=== PATIENT | female | born 1955 | race Caucasian/White ===

== ENCOUNTER 2020-06-05 10:51 | Emergency (ER) | payer MEDICARE ==
[~2020-06-05] VITALS: Ht 172.7 cm; Wt 72.3 kg
[2020-06-05 11:00] VITALS: BP 138/74
[2020-06-05] MEDS ORDERED: CEFTRIAXONE 250 MG IM ONE (12:30)
[2020-06-05] MEDS ORDERED: AZITHROMYCIN 500 MG TABLET PO ONE (12:30)
[2020-06-05 12:52] LABS: CLUE CELLS PRESENT (NONE SEEN); WET PREP WBCS FEW (FEW)
[2020-06-05] MEDS ORDERED: CEFTRIAXONE 250 MG ONE (13:02)
[2020-06-05] MEDS ORDERED: AZITHROMYCIN 250 MG TABLET ONE (13:03)
== END 2020-06-05 13:59 | disposition home or self-care (01) ==
LOC: ED 13:50
DX: A56.09 Other chlamydial infection of lower genitourinary tract (principal); A59.09 Other urogenital trichomoniasis; N76.0 Acute vaginitis; A58 Granuloma inguinale; R10.2 Pelvic and perineal pain; N93.9 Abnormal uterine and vaginal bleeding, unspecified
CPT/HCPCS: 87210; 87491; 87591; 87808; 96372; 99284; J0696

== ENCOUNTER 2020-06-22 18:38 | Emergency (ER) | payer MEDICAID, MEDICARE ==
[~2020-06-22] VITALS: Ht 157.5 cm; Wt 73.0 kg
--- NOTE | 2020-06-22 19:04 | NUR ---
PT REFUSED EKG IN TRIAGE. PT REFUSED SAYS IT WAS MAKING HER SICK TO SIT UP. EXPLAINED TO PT THAT EKG WAS IMPORTANT TO LOOK AT HER HEART AND SHE STILL REFUSED.
[2020-06-22] MEDS ORDERED: ACETAMINOPHEN 325 MG TABLET ONE (20:33)
--- NOTE | 2020-06-22 20:58 | NUR ---
PT PROVIDED WALKER AND SHOWN HOW TO PROPERLY USE WALKER. PT REQUESTED CAB VOUCHER, VOUCHER PROVIDED TO PT AT DISCHARGE.
[2020-06-22] MEDS ORDERED: ACETAMINOPHEN 325 MG TABLET PO ONE (21:00)
[2020-06-22 21:15] VITALS: BP 132/84
== END 2020-06-22 21:17 | disposition home or self-care (01) ==
LOC: ED 19:45
DX: M25.551 Pain in right hip (principal); M25.511 Pain in right shoulder; F17.210 Nicotine dependence, cigarettes, uncomplicated; Z96.643 Presence of artificial hip joint, bilateral; W18.30XA Fall on same level, unspecified, initial encounter; Y93.89 Activity, other specified; Y92.410 Unspecified street and highway as the place of occurrence of the external cause; Y99.8 Other external cause status
CPT/HCPCS: 99284

== ENCOUNTER 2020-07-31 09:22 | Emergency (ER) | payer MEDICARE, MEDICAID ==
[~2020-07-31] VITALS: Ht 157.5 cm; Wt 55.0 kg
[2020-07-31 09:27] VITALS: BP 135/71
--- NOTE | 2020-07-31 10:00 | NUR ---
PT IN BR FOR APPROX 20 MINUTES. CHECKED ON SEVERAL TIMES. PT UNABLE TO GIVE UA. H2O PROVIDED.
[2020-07-31 10:43] LABS: MICROSCOPIC INDICATED
[2020-07-31] MEDS ORDERED: ACETAMINOPHEN 325 MG TABLET PO ONE (11:00)
[2020-07-31] MEDS ORDERED: ACETAMINOPHEN 325 MG TABLET ONE (11:03)
== END 2020-07-31 11:20 | disposition home or self-care (01) ==
LOC: ED 10:28
DX: N30.01 Acute cystitis with hematuria (principal); R30.0 Dysuria
CPT/HCPCS: 81001; 87077; 87086; 87186; 99283

== ENCOUNTER 2020-08-27 21:04 | Emergency (ER) | payer MEDICARE, MEDICAID ==
[~2020-08-27] VITALS: Ht 157.5 cm; Wt 60.0 kg
--- NOTE | 2020-08-27 21:23 | NUR ---
DR VELOZ AT BS. PT SITTING ON SIDE OF BED. C/O RT ARM "PARALYZED" - LIMITED ROM R/T PAIN. STATES SHE HAD SHOULDER SURGERY ABOUT 15 YEARS AGO. PT STATES SHE MOVED TO [place] 6 WEEKS AGO. ALSO C/O LT LEG SWOLLEN TODAY. REPORT PAIN X 1 WEEK. C/O PAIN TO ENTIRE LT LEG. SCARS TO LT HIP: HIP REPLACED. DENNEETU CP, SOB. Addendum: 08/27/20 at 2132 by NADIA PT STATES SHE IS UNABLE TO LIFT HER LEGS ONTO GURNEY; ASSISTANCE PROVIDED.
[2020-08-27] MEDS ORDERED: KETOROLAC 30 MG/1 ML IM ONE (21:30)
--- NOTE | 2020-08-27 21:30 | NUR ---
PT FOUND STANDING AT BS, USING BOTH EXTREMETIES TO WIPE HER FEET AT TO [facility]. PT CURRENTLY STAYING AT LOCAL [facility].
--- NOTE | 2020-08-27 21:40 | NUR ---
PT SPEAKING RAPIDLY. 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 STATES SHE HAS HTN BUT DOESN'T TAKE HTN MED. STATES SHE'S BIPOLAR, BUT HASN'T NEEDED HER MEDICATION IN YEARS.
[2020-08-27] MEDS ORDERED: KETOROLAC 30 MG/1 ML ONE (21:43)
--- NOTE | 2020-08-27 21:46 | NUR ---
OBSERVED PT USING BOTH ARMS, ABLE TO BEND RT ARM AT ELBOW TO PUT FOOD IN HER MOUTH.
--- NOTE | 2020-08-27 21:49 | NUR ---
TORADOL GIVEN PER EMAR
--- NOTE | 2020-08-27 21:55 | NUR ---
PT FOUND WALKING IN [place], USING HER WALKER, GOING TO USE THE PHONE. RETURNED TO ED ROOM W/OUT INCIDENT. ABLE TO LIFT/MOVE WALKER W/OUT ANY APPARENT DIFFICULTY.
--- NOTE | 2020-08-27 22:00 | NUR ---
BEDSIDE REPORT RECEIVED FROM ZAHRA CAPPS
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
--- NOTE | 2020-08-27 23:08 | NUR ---
US AT BEDSIDE
--- NOTE | 2020-08-27 23:30 | NUR ---
US LEFT BEDSIDE. PT IN NAD, VSS. PT REPORTS MINIMAL RELIEF FROM MERCHANDISE ADJUSTMENT CLERK. ERP NOTIFIED. NO NEEDS AT THIS TIME. CALL LIGHT AND PERSONAL BELONGINGS WITHIN REACH.
[2020-08-27 23:58] VITALS: BP 156/72
--- NOTE | 2020-08-27 23:58 | NUR ---
Patient given discharge instructions and they have confirmed that they understand the instructions. Patient ambulatory to d/c desk with use of personal walker.
== END 2020-08-28 | disposition home or self-care (01) ==
LOC: ED 21:39
DX: M25.511 Pain in right shoulder (principal); M79.605 Pain in left leg; Z96.643 Presence of artificial hip joint, bilateral
CPT/HCPCS: 93971; 96372; 99284; J1885

== ENCOUNTER 2020-08-30 17:48 | Emergency (ER) | payer MEDICARE, MEDICAID ==
[~2020-08-30] VITALS: Ht 160 cm; Wt 65.0 kg
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
--- NOTE | 2020-08-30 18:14 | NUR ---
Pt to XR
--- NOTE | 2020-08-30 18:28 | NUR ---
Pt back from imaging.
[2020-08-30 19:46] VITALS: BP 126/82
--- NOTE | 2020-08-30 19:55 | NUR ---
Provided pt taxi cab voucher.
== END 2020-08-30 19:57 | disposition home or self-care (01) ==
LOC: ED 18:26
DX: S40.011A Contusion of right shoulder, initial encounter (principal); S50.02XA Contusion of left elbow, initial encounter; S80.02XA Contusion of left knee, initial encounter; W07.XXXA Fall from chair, initial encounter; Y93.89 Activity, other specified; Y92.89 Other specified places as the place of occurrence of the external cause; Y99.8 Other external cause status
CPT/HCPCS: 99284

== ENCOUNTER 2020-10-03 01:31 | Emergency (ER) | payer MEDICARE, MEDICAID ==
[~2020-10-03] VITALS: Ht 157.5 cm; Wt 67.5 kg
[2020-10-03 01:37] VITALS: BP 157/98
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
--- NOTE | 2020-10-03 02:13 | NUR ---
computer lab assistant to bedside to draw blood.
--- NOTE | 2020-10-03 02:13 | NUR ---
landfill gas technician to bedside for portable cxry
[2020-10-03 02:19] LABS: BASOPHILS % (AUTO) 1 % (0-1); EOSINOPHILS % (AUTO) 3 % (1-7); LYMPHOCYTES % (AUTO) 23 % (22-44); MD NO; MEAN CORPUSCULAR HGB CONC 33.6 g/dL (32.4-35.8); MEAN PLATELET VOLUME 7.1 fL (7.4-10.4); MONOCYTES % (AUTO) 7 % (2-9); NEUTROPHILS % (AUTO) 67 % (42-75); PLATELET COUNT 338 x10^3/uL (130-400); RED BLOOD COUNT 3.61 x10^6/uL (3.82-5.3); RED CELL DISTRIBUTION WIDTH 16.5 % (9.6-15.2)
[2020-10-03 02:29] LABS: ALANINE AMINOTRANSFERASE 37 U/L (12-78); ALBUMIN 3.6 g/dL (3.4-5.0); ANION GAP 8 mmol/L (5-15); CALCIUM 8.9 mg/dL (8.5-10.1); CHLORIDE 108 mmol/L (98-107); CREATININE 0.96 mg/dL (0.55-1.02)
[2020-10-03 02:34] LABS: ALKALINE PHOSPHATASE 163 U/L (45-117); BILIRUBIN,TOTAL 0.3 mg/dL (0.2-1.0); TOTAL PROTEIN 7.1 g/dL (6.4-8.2); TROPONIN I < 0.015 ng/mL (0.000-0.045)
--- NOTE | 2020-10-03 02:59 | NUR ---
pt attempted to get out of her room, and was found a door down, limping to the bathroom, after she called for assistance and the RN was getting a wheelchair. pt beligerant in following orders. assisted to the commode and told to pull the call light when she was done.
--- NOTE | 2020-10-03 03:18 | NUR ---
pt remains in the bathroom, and refuses assistance and states she is "wiping her ass", and why that is taking her long time in the bathroom. supercharge repair supervisor notified of issue, and pt also updated that assitance is available if she needs it to help her clean up.
--- NOTE | 2020-10-03 03:20 | NUR ---
pt has been advised to call for assitanct and not to get up and walk on her own while in the ER. We are available to assist her to and from commode.
--- NOTE | 2020-10-03 03:38 | NUR ---
Pt spent 30 min in the restroom. When she came out, she had sat herself and walked around the restroom with no assistance and was able to. Pt brought back to her room to assist her to get dressed. she stood on her own, and ambulated and dressed herself. assistance was offered for any of her needs. Pt beligerant and blaming staff saying we refuse to treat her or her right arm which she states she is in pain with. full ROM of right arm and holding her self up with it. pt given d/c and f/u instructions and also a cab voucher to get her to where she needs to go, per pt, she wants to go to the [place] [employer] and provided that address. On her d/c pt stated she's gonna have to go to [facility] to get her arm seen since we won't help her. Pt was re oriented to the assistance and medical help and clearance she received here at this time. Pt remains angry, stating we haven't given her any results. Results and tests that were conducted were provided for the pt. She was d/c in wheelchair to lobby to wait for her cab after it was called for her.
== END 2020-10-03 03:42 | disposition home or self-care (01) ==
LOC: ED 01:52
DX: R07.89 Other chest pain (principal); M25.569 Pain in unspecified knee
CPT/HCPCS: 36415; 71045; 80053; 83690; 84484; 85025; 93005; 99285

== ENCOUNTER 2020-10-05 13:00 | Emergency (ER) | payer MEDICARE, MEDICAID ==
[~2020-10-05] VITALS: Ht 157.5 cm; Wt 68.4 kg
[2020-10-05 13:11] VITALS: BP 143/81
--- NOTE | 2020-10-05 13:18 | NUR ---
triage note: pt to room 17 for EKG, pt is uncooperative with questions
[2020-10-05] MEDS ORDERED: ASPIRIN 81 MG TABLET CHEW PO ONE (13:30)
[2020-10-05] MEDS ORDERED: SODIUM CHLORIDE FLUSH 10ML SYR IVF ONE (13:30)
--- NOTE | 2020-10-05 13:33 | NUR ---
TECH AT BEDSIDE OBTAINING EKG AND MD EXAMINING PT. PT TO BE PROVIDED KNEE IMMOBILIZER HERS BROKE AND THAT IS WHAT SHE PRESENTED TO ER FOR
--- NOTE | 2020-10-05 14:13 | NUR ---
BREAK RN: PRIMARY RN AND SECURITY AT BEDSIDE TO ASSIST PT TO DC. THIS RN AT BEDSIDE WHILE PT COMPLETED DRESSING. SECURITY CALLED FOR TAXI AND ESCORTED PT TO WAIT FOR TAXI.
== END 2020-10-05 14:16 | disposition home or self-care (01) ==
LOC: ED 13:15
DX: R07.2 Precordial pain (principal); R94.31 Abnormal electrocardiogram [ECG] [EKG]; Z76.0 Encounter for issue of repeat prescription
CPT/HCPCS: 93005; 99283

== ENCOUNTER 2020-12-28 11:37 | Emergency (ER) | payer MEDICARE, MEDICAID ==
[~2020-12-28] VITALS: Ht 157.5 cm; Wt 64.0 kg
[~2020-12-28 11:37] MED LIST: ACET325T26 PO; AMLO-210 PO; AMOX1TAB64 PO; DIVA250T PO; DOCU-131 PO; ENOX40SY4 SQ; ESCI20TA10 PO; LIDO700A20 TD; NITR100C56 PO; OLAN20TA3 PO
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
[2020-12-28] MEDS ORDERED: ONDANSETRON 2MG/ML, 2ML ONE (12:06)
[2020-12-28] MEDS ORDERED: MORPHINE SULFATE 4 MG/ML, 1ML ONE (12:06)
[2020-12-28] MEDS ORDERED: SODIUM CHLORIDE FLUSH 10ML SYR IVF ONE (12:30)
[2020-12-28] MEDS ORDERED: ONDANSETRON 2MG/ML, 2ML IVPush ONE (12:30)
[2020-12-28] MEDS ORDERED: MORPHINE SULFATE 4 MG/ML, 1ML IVPush PRN (12:30)
--- NOTE | 2020-12-28 12:37 | NUR ---
PT O2 SAT DROP AFTER ADM OF MORPINE. PLACED ON 2 LITERS O2 VIA NC
[2020-12-28 12:51] VITALS: BP 185/98
--- NOTE | 2020-12-28 13:51 | NUR ---
PT UP WALKING AROUND ROOM. FULLY CLOTHED. REMOVED MONITORING EQUIPMENT. THIS RN CHECKED HER PULSE OX ON ROOM AIR - 93%
--- NOTE | 2020-12-28 14:12 | NUR ---
PT AMBULATED WITH STEADY GAIT. GIVEN TAXI VOUCHER TO LOCATION OF HER CHOICE
== END 2020-12-28 14:13 | disposition home or self-care (01) ==
LOC: ED 12:09
DX: S43.51XA Sprain of right acromioclavicular joint, initial encounter (principal); S80.02XA Contusion of left knee, initial encounter; W18.30XA Fall on same level, unspecified, initial encounter; Y93.89 Activity, other specified; Y92.521 Bus station as the place of occurrence of the external cause; Y99.8 Other external cause status
CPT/HCPCS: 73030; 73564; 96374; 96375; 99284; J2270; J2405

== ENCOUNTER 2021-01-03 08:58 | Observation (INO) | payer MEDICARE, MEDICAID ==
[~2021-01-03] VITALS: Ht 157.5 cm; Wt 63.7 kg
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
--- NOTE | 2021-01-03 10:06 | NUR ---
REPORT RECEIVED FROM JEFRY COUCH. PT MOVED TO ER ROOM 3. PT CHANGED IN TO GOWN, ALL BELONINGS DOCUMENTED AND PLACED IN LOCKER. PT TO X RAY.
[2021-01-03 10:28] LABS: MICROSCOPIC INDICATED
[2021-01-03 10:32] LABS: BASOPHILS % (AUTO) 1 % (0-1); EOSINOPHILS % (AUTO) 4 % (1-7); LYMPHOCYTES % (AUTO) 23 % (22-44); MEAN CORPUSCULAR HEMOGLOBIN 30.5 pg (27.0-34.8); MEAN CORPUSCULAR HGB CONC 33.2 g/dL (32.4-35.8); MEAN PLATELET VOLUME 7.2 fL (7.4-10.4); MONOCYTES % (AUTO) 7 % (2-9); NEUTROPHILS % (AUTO) 66 % (42-75); PLATELET COUNT 350 x10^3/uL (130-400); RED BLOOD COUNT 4.32 x10^6/uL (3.82-5.3); RED CELL DISTRIBUTION WIDTH 15.8 % (9.6-15.2)
[2021-01-03 10:36] LABS: AMPHETAMINE SCREEN, URINE Negative (Negative); BARBITURATE SCREEN, URINE Negative (Negative); BENZODIAZEPINE SCREEN, URINE Negative (Negative); CANNABINOID SCREEN, URINE Positive (Negative); COCAINE SCREEN, URINE Negative (Negative); METHADONE SCREEN, URINE Negative (Negative); OPIATE SCREEN, URINE Negative (Negative)
[2021-01-03 10:43] LABS: ALBUMIN 4.1 g/dL (3.4-5.0); ANION GAP 6 mmol/L (5-15); CHLORIDE 111 mmol/L (98-107); SALICYLATE LEVEL < 1.7 mg/dL (2.8-20.0)
[2021-01-03 10:46] LABS: ALANINE AMINOTRANSFERASE 20 U/L (12-78); ALKALINE PHOSPHATASE 90 U/L (45-117); BILIRUBIN,TOTAL 0.3 mg/dL (0.2-1.0); CREATININE 1.02 mg/dL (0.55-1.02); TOTAL PROTEIN 7.8 g/dL (6.4-8.2)
[2021-01-03 10:57] LABS: MD NO
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
--- NOTE | 2021-01-03 13:00 | NUR ---
PT RESTING COMFORTABLY IN [facility]. CALL LIGHT WITHIN REACH. SITTER AT BEDSIDE.
[2021-01-03] MEDS ORDERED: OLANZAPINE 5 MG TABLET PO ONE (14:00)
[2021-01-03] MEDS ORDERED: ESCITALOPRAM 10MG TABLET PO SCH (14:00)
--- NOTE | 2021-01-03 14:21 | NUR ---
PT REQUESTING TO CALL SISTER AND UPDATE HER THAT SHE IS IN HOSPITAL. PT GIVEN PHONE AND MADE PHONE CALL WITH RN AT BEDSIDE. PT RESTING COMFORTABLY. SITTER AT BEDSIDE.
[2021-01-03] MEDS ORDERED: OLANZAPINE 5 MG TABLET ONE (14:24)
--- NOTE | 2021-01-03 14:45 | NUR ---
COVID SWAB WALKED DOWN TO LAB
[2021-01-03 15:00] VITALS: BP 150/83
--- NOTE | 2021-01-03 16:18 | NUR ---
BREAK RN: PT TO MRI
--- NOTE | 2021-01-03 17:20 | NUR ---
PT BACK FROM MRI, RESTING COMFORTABLY. CALL LIGHT WITHIN REACH. SITTER AT BEDSIDE.
--- NOTE | 2021-01-03 17:52 | NUR ---
REPORT GIVEN TO JEFRY PEREA
[2021-01-03] MEDS ORDERED: DIVALPROEX 500 MG TAB.ER.24H PO SCH (21:00)
[2021-01-03] MEDS ORDERED: OLANZAPINE 10 MG TABLET PO SCH (21:00)
[2021-01-04] MEDS ORDERED: ACETAMINOPHEN 325 MG TABLET ONE (07:44)
== END 2021-01-03 18:34 | disposition home or self-care (01) ==
LOC: ED 09:15 → EDIP 12:58 → ED 13:09 → UNDOADMOB 13:31 → EDIP 13:31 → UNDODISOB 18:35
PROVIDERS: ADMIT Emergency Medicine; ATTEND Emergency Medicine
DX: F31.9 Bipolar disorder, unspecified (principal); Z20.822 Contact with and (suspected) exposure to COVID-19; S22.080A Wedge compression fracture of T11-T12 vertebra, initial encounter for closed fracture; S32.010A Wedge compression fracture of first lumbar vertebra, initial encounter for closed fracture; S32.020A Wedge compression fracture of second lumbar vertebra, initial encounter for closed fracture; S32.040A Wedge compression fracture of fourth lumbar vertebra, initial encounter for closed fracture; M25.562 Pain in left knee; I10 Essential (primary) hypertension; X83.8XXA Intentional self-harm by other specified means, initial encounter; W01.0XXA Fall on same level from slipping, tripping and stumbling without subsequent striking against object, initial encounter; Y93.89 Activity, other specified; Y92.89 Other specified places as the place of occurrence of the external cause; Z86.73 Personal history of transient ischemic attack (TIA), and cerebral infarction without residual deficits; Z87.440 Personal history of urinary (tract) infections
CPT/HCPCS: 36415; 72110; 72148; 72220; 73564; 80053; 80299; 80307; 80320; 80329; 81001; 85025; 87086; 87426; 99285; G0378; G0480

== ENCOUNTER 2021-02-16 11:57 | Emergency (ER) | payer MEDICARE, MEDICAID ==
[~2021-02-16] VITALS: Ht 157.5 cm; Wt 69.0 kg
[~2021-02-16 11:57] MED LIST changes: +ATOR10TA9 PO; +DIVA500T4 PO; +ESCI10TA97 PO; +LISI-170 PO; +MELO15TA24 PO; +OLAN10TA9 PO; +PRAZ1CAP2 PO
[2021-02-16 12:14] VITALS: BP 121/69
--- NOTE | 2021-02-16 12:47 | NUR ---
seedling sorter note: Pt to room from lobby.
[2021-02-16] MEDS ORDERED: METHOCARBAMOL 750 MG TABLET ONE (13:21)
[2021-02-16] MEDS ORDERED: KETOROLAC 30 MG/1 ML ONE (13:21)
--- NOTE | 2021-02-16 13:29 | NUR ---
Patient given wound care/discharge instructions and they have confirmed that they understand the instructions. Patient ambulatory with steady gait. NAD, all questions answered appropriately, denies additional needs at this time. No personal belongings left in room after discharge.
[2021-02-16] MEDS ORDERED: METHOCARBAMOL 750 MG TABLET PO ONE (13:30)
[2021-02-16] MEDS ORDERED: KETOROLAC 30 MG/1 ML IM ONE (13:30)
--- NOTE | 2021-02-16 13:52 | NUR ---
REPORT GIVEN TO RIK CAPPS
== END 2021-02-16 14:57 | disposition home or self-care (01) ==
LOC: ED 14:45
DX: S80.02XA Contusion of left knee, initial encounter (principal); K12.0 Recurrent oral aphthae; F17.210 Nicotine dependence, cigarettes, uncomplicated; W01.0XXA Fall on same level from slipping, tripping and stumbling without subsequent striking against object, initial encounter; Y93.89 Activity, other specified; Y92.410 Unspecified street and highway as the place of occurrence of the external cause; Y99.8 Other external cause status
CPT/HCPCS: 73564; 96372; 99283; J1885

== ENCOUNTER 2021-02-21 12:03 | Emergency (ER) | payer MEDICARE, MEDICAID ==
[~2021-02-21] VITALS: Ht 157.5 cm; Wt 65.0 kg
[2021-02-21 12:16] VITALS: BP 143/76
[2021-02-21] MEDS ORDERED: PROPARACAINE OPHTH 0.5%, 15ML ONE (12:38)
[2021-02-21] MEDS ORDERED: FLUORESCEIN OPHTHALMIC 1 MG STRIP ONE (12:39)
[2021-02-21] MEDS ORDERED: FLUORESCEIN OPHTHALMIC 1 MG STRIP EACHEYE ONE (13:00)
[2021-02-21] MEDS ORDERED: PROPARACAINE OPHTH 0.5%, 15ML EACHEYE ONE (13:00)
--- NOTE | 2021-02-21 13:25 | NUR ---
Patient given discharge instructions and they have confirmed that they understand the instructions.
== END 2021-02-21 13:33 | disposition home or self-care (01) ==
LOC: ED 12:47
DX: S05.02XA Injury of conjunctiva and corneal abrasion without foreign body, left eye, initial encounter (principal); X58.XXXA Exposure to other specified factors, initial encounter; Y93.89 Activity, other specified; Y92.009 Unspecified place in unspecified non-institutional (private) residence as the place of occurrence of the external cause; Y99.8 Other external cause status
CPT/HCPCS: 99283

== ENCOUNTER 2021-05-10 21:10 | Emergency (ER) | payer MEDICARE, MEDICAID ==
[~2021-05-10] VITALS: Ht 162.6 cm; Wt 70.0 kg
[~2021-05-10 21:10] MED LIST changes: +OLAN10TA69 PO; -OLAN10TA9 PO
[2021-05-10 21:17] VITALS: BP 136/80
[2021-05-10] MEDS ORDERED: ACETAMINOPHEN 325 MG TABLET ONE (21:54)
[2021-05-10] MEDS ORDERED: ACETAMINOPHEN 325 MG TABLET PO ONE (22:00)
--- NOTE | 2021-05-10 23:14 | NUR ---
pt educated on dc instructions, verbalized understandnig. ambulatory to dc desk with steady gait.
== END 2021-05-10 23:22 | disposition home or self-care (01) ==
LOC: ED 21:30
DX: G89.11 Acute pain due to trauma (principal); M25.511 Pain in right shoulder; M25.562 Pain in left knee; Z86.73 Personal history of transient ischemic attack (TIA), and cerebral infarction without residual deficits; Y04.8XXA Assault by other bodily force, initial encounter; Y93.89 Activity, other specified; Y92.009 Unspecified place in unspecified non-institutional (private) residence as the place of occurrence of the external cause; Y99.8 Other external cause status
CPT/HCPCS: 99284

== ENCOUNTER 2021-05-11 01:27 | Emergency (ER) | payer MEDICARE, MEDICAID ==
[~2021-05-11] VITALS: Ht 157.5 cm; Wt 60.0 kg
[2021-05-11 01:39] VITALS: BP 165/77
--- NOTE | 2021-05-11 01:42 | NUR ---
PATIENT YELLING AT THIS RN AND TECH IN TRIAGE THAT SHE ISNT USING HER WALKER ANYMORE. PATIENT REFUSING TO REMOVE WALKER FROM TRIAGE AND DOORWAY. PATIENT STATES "JUST THROW WALKER OUT OF THE DOOR THEN." WALKER PLACED IN LOBBY, PATIENT REFUSING TO USE IT.
--- NOTE | 2021-05-11 04:07 | NUR ---
pt to room from lobby
--- NOTE | 2021-05-11 04:07 | NUR ---
PT STATES HER WALKER DOESNT HAVE BREAKS AND IT WENT OFF BY ITSELF AND THEN PT LANDED ON HER LOWER BACK AND PART OF HER HEAD BUT MOSTLY HER LOWER BACK
--- NOTE | 2021-05-11 04:10 | NUR ---
THIS RN NOTES NO SIGNS OF TRAUMA TO PTS HEAD BUT PT STATES HER, "SPINE IS SCREWING UP" AND PT IS TENDER ON THE NAPE OF HER NECK
--- NOTE | 2021-05-11 04:16 | NUR ---
PT AMBULATED TO THE NURSING STATION USING HER WALKER, PT HAS STEADY AMBULATION AND USES WALKER APPROPRIATELY
[2021-05-11] MEDS ORDERED: KETOROLAC 30 MG/1 ML ONE (04:20)
[2021-05-11] MEDS ORDERED: ACETAMINOPHEN 500 MG TABLET ONE (04:21)
[2021-05-11] MEDS ORDERED: ACETAMINOPHEN 500 MG TABLET PO ONE (04:30)
[2021-05-11] MEDS ORDERED: KETOROLAC 30 MG/1 ML IM ONE (04:30)
--- NOTE | 2021-05-11 04:58 | NUR ---
Patient given discharge instructions and they have confirmed that they understand the instructions. Patient ambulatory with steady gait. NAD, all questions answered appropriately, denies additional needs at this time. No personal belongings left in room after discharge.
== END 2021-05-11 05:00 | disposition home or self-care (01) ==
LOC: ED 02:00
DX: S39.012A Strain of muscle, fascia and tendon of lower back, initial encounter (principal); Z86.73 Personal history of transient ischemic attack (TIA), and cerebral infarction without residual deficits; W18.30XA Fall on same level, unspecified, initial encounter; Y93.89 Activity, other specified; Y92.89 Other specified places as the place of occurrence of the external cause; Y99.8 Other external cause status
CPT/HCPCS: 72110; 96372; 99283; J1885